=== PATIENT | male | born 1950 | race Caucasian/White ===

== ENCOUNTER 2023-07-13 09:55 | Outpatient (RCR) | payer MEDICARE, OTHER, SELFPAY ==
[2023-07-13 10:38] VITALS: BP 125/61
[2023-07-13 10:59] VITALS: BP 131/60
[2023-07-13 11:01] VITALS: BP 120/63
== END 2023-08-08 23:59 | disposition home or self-care (01) ==
LOC: OID 09:55
PROVIDERS: ATTENDING PHYSICIAN Specialist; FAMILY PHYSICIAN Nurse Practitioner Family
DX: E83.110 Hereditary hemochromatosis (principal)
CPT/HCPCS: 99195

== ENCOUNTER → 2023-11-14 07:13 | Outpatient (REF) | payer MEDICARE, OTHER, SELFPAY | LOC: PAVMRI 07:13 | PROVIDERS: ATTENDING PHYSICIAN Otolaryngology; FAMILY PHYSICIAN Nurse Practitioner Family | DX: H90.A21 Sensorineural hearing loss, unilateral, right ear, with restricted hearing on the contralateral side (principal); H93.11 Tinnitus, right ear | CPT/HCPCS: 70553; A9575 ==

== ENCOUNTER → 2024-01-04 10:09 | Outpatient (REF) | payer MEDICARE, OTHER, SELFPAY | LOC: RCS 10:09 | PROVIDERS: ATTENDING PHYSICIAN Internal Medicine Cardiovascular Disease; FAMILY PHYSICIAN Nurse Practitioner Family | DX: Q23.1 Congenital insufficiency of aortic valve (principal); I35.0 Nonrheumatic aortic (valve) stenosis; I35.1 Nonrheumatic aortic (valve) insufficiency | CPT/HCPCS: 93306 ==

== ENCOUNTER 2024-06-13 10:30 | Outpatient (RCR) | payer MEDICARE, OTHER, SELFPAY ==
[2024-06-13 11:18] VITALS: BP 132/69
[2024-06-13 11:46] VITALS: BP 133/60
[2024-06-13 11:50] VITALS: BP 128/69
== END 2024-07-08 23:59 | disposition home or self-care (01) ==
LOC: OID 10:30
PROVIDERS: ATTENDING PHYSICIAN Specialist
DX: E83.110 Hereditary hemochromatosis (principal)
CPT/HCPCS: 99195

== ENCOUNTER 2024-07-02 12:00 | Emergency (ER) | payer MEDICARE, OTHER, SELFPAY ==
[2024-07-02 12:04] VITALS: BP 120/66
[2024-07-02 12:31] LABS: COVID-19 Antigen Positive (Negative)
--- NOTE | 2024-07-02 14:04 | ED.GENMED ---
History of Present Illness
General
Chief Complaint: Cold/Flu/URI Symptoms
Source: patient
Exam Limitations: none
Time Seen by Provider: 07/02/24 13:56
Nursing documentation reviewed up to this point in time: agreed with
History of Present Illness
History of Present Illness:
Patient is a 74-year-old male presents today requesting COVID test. He reports he feels 'lousy' and requesting test. He feels body aches, mild nasal congestion. No fevers. He denies any shortness of breath, cough.
He has not taken any medications for symptoms.
Past History
Past History
ED Past Medical History: Other (BPH); Negative Asthma, HTN, Hypercholesterolemia or NIDDM
ED Past Surgical History: None
Social History
Tobacco: Non-smoker
Alcohol: Occasional
Personal:
Living: with family
Review of Systems
Review of Systems
Allergies reviewed?: Yes
All Other Systems: ROS reviewed and negative except as documented in HPI and ROS
Constitutional: Reports fatigue; Denies fever
EENT: Reports runny nose
Respiratory: Reports cough; Denies trouble breathing
ABD/GI: Reports no symptoms
: Reports no symptoms
Musculoskeletal: Reports other (Feels achy)
Skin: Reports no symptoms
Neurological: Reports no symptoms
Psychiatric: Reports no symptoms
Phy Exam
General Physical Exam
General Presentation: no apparent distress
General age: appears stated age
General Skin: warm and dry
General Habitus: elderly
General Mental: alert
General Hydration: appears well hydrated
Cardiovascular Exam
Cardiovascular Exam: regular rate/rhythm, no murmur and normal peripheral pulses
Pulmonary Exam
Pulmonary Exam: lungs clear and no respiratory distress
Neurological Exam
Neurological Exam: alert and oriented x3
Musculoskeletal Exam
Musculoskeletal Exam: full ROM
Skin Exam
Skin Exam: normal color and warm/dry
Psychiatric Exam
Psychiatric Exam: normal mood/affect
Course
Orders/Labs/Results
Orders:
Orders
07/02/24 12:18
COVID-19 Antigen Urgent
Source: Nasal Swab
Influenza A+B Rapid Molecular Urgent
BHUPINDER Source: Nasal Swab
Specimen Description:
Abnormal Lab Results
07/02/24
12:18
SARS-CoV-2 Antigen Positive A
(Negative)
Vital Signs
Initial and Last Documented VS:
Initial Vital Signs
Temp Pulse Resp BP Pulse Ox
98.1 F 78 18 120/66 100
07/02/24 12:04 07/02/24 12:04 07/02/24 12:04 07/02/24 12:04 07/02/24 12:04
Last Documented Vital Signs
Temp Pulse Resp BP Pulse Ox
98.1 F 78 18 120/66 100
07/02/24 12:04 07/02/24 12:04 07/02/24 12:04 07/02/24 12:04 07/02/24 12:04
MDM/Problems Addressed
MDM/Problems Addressed:
Pt came to the ED requesting COVID test. Patient has not felt well in the past several days feels achy subjective chills. He has not tested for COVID. He was found to be COVID-positive here however well-appearing. pt stable for d/c home with
supportive care, encouraged hydration Tylenol etc.
*Critical Care Note
Total Time (30-74mins, 75-104mins- exclusive of procedures): Not Applicable
ED Attending Note
-
Portions of this chart may have been created with voice recognition software.� Occasional wrong word or��sound alike� substitutions may have occurred due to the inherent limitations of voice recognition software.
Discharge Plan
Departure
Patient Disposition: Home (Routine Discharge)
Date of Disposition: 07/02/24
Time of Disposition: 14:17
Patient with high blood pressure during this ER visit?: No
Condition: Fair
Covid-19: Confirmed COVID-19
Discharge Problem:
COVID-19
Instructions: COVID-19 in adults - Discharge instructions
Prescriptions:
No Action
tamsulosin 0.4 MG capsule
0.4 mg PO .Q4DAY
finasteride 5 MG tablet
5 mg PO DAILY
atorvastatin 20 mg Tablet
20 mg PO DAILY
Activity Restrictions/Additional Instructions:
As discussed stay well-hydrated . Continue with supportive care, Tylenol as needed for fever or chills.
Follow-up with your family doctor as needed in the next several days and return if any worsening of symptoms
Interventions
Interventions:
*Risk Screen - Suicide Last Done: 07/02/24 14:27
*General Assessment Last Done: 07/02/24 14:27
*Neglect/Abuse Screening Last Done: 07/02/24 14:27
ED- Fall Risk Assessment Last Done: 07/02/24 14:19
*Nursing Disposition Last Done: 07/02/24 14:27
ED- Pulmonary Assessment Last Done: 07/02/24 14:19
Discharge Date and Time
Discharge Date/Time: 07/02/24 14:28
Print Language: JAMAICAN
== END 2024-07-02 14:28 | disposition home or self-care (01) ==
LOC: EMR 12:00
PROVIDERS: Emergency Medicine; EMERGENCY PHYSICIAN Emergency Medicine; FAMILY PHYSICIAN Nurse Practitioner Family
DX: U07.1 COVID-19 (principal); N40.0 Benign prostatic hyperplasia without lower urinary tract symptoms
CPT/HCPCS: 99282; 87502; 87811

== ENCOUNTER → 2024-07-28 07:12 | Outpatient (REF) | payer MEDICARE, OTHER, SELFPAY | LOC: RCS 07:12 | PROVIDERS: ATTENDING PHYSICIAN Physician Assistant Medical; FAMILY PHYSICIAN Nurse Practitioner Family | DX: Q23.1 Congenital insufficiency of aortic valve (principal); I35.0 Nonrheumatic aortic (valve) stenosis; R06.02 Shortness of breath; R53.83 Other fatigue | CPT/HCPCS: 93306 ==

== ENCOUNTER → 2024-08-12 06:53 | Day surgery (SDC) | payer MEDICARE, OTHER, SELFPAY ==
[2024-08-12] VITALS (12 sets, daily range): BP systolic 110–148; BP diastolic 53–73; BMI 25.1
[2024-08-12] MEDS: NSS 259 ML IV (07:30)
[2024-08-12] MEDS: LOW STRENGTH ASPIRIN 324 MG PO (07:36)
[2024-08-12 11:19] LABS: ACT-LR - POC 213 Seconds (116-155)
--- NOTE | 2024-08-12 14:50 | CONSULT.STRU ---
Consultation
-
Date/Time Consultation Requested: 08/12/2024
Date/Time Consultation Performed: 08/12/2024
Requesting Provider: Dr. Michael Poole
Performing Provider: CECILY Juarez
Reason for Consultation: Aortic stenosis, TAVR evaluation
Patient History
Physicians
Family Physician: Odalis Alex
Outpatient Community Health Educator: Perlita Pickard
Primary Community Health Educator: Austin Pickard
History of Present Illness
Patient is a very pleasant 74yo male with know history of a bicuspid aortic valve. Since the summer he has been feeling increased fatigue. He denies chest pain, palpitations, PND, orthopnea or edema. His most recent echocardiogram on 07/28/2024 was
notable for EF 60%, aortic valve PG/M/41, TANIKA: 0.9, mildly dilated aortic root and ascending aorta measure 3.9cm. It also shows mild to moderate eccentric jet AI. Mild MR and TR noted as well. He underwent cardiac catheterization today today in
anticipation of have his aortic valve replaced in the near future.
Reviewed the pathophysiology of aortic stenosis with the patient and his . Explained the treatment options of SAVR and TAVR. Explained the TAVR evaluation process including follow up BMP, CT TAVR scan, CT surgery consult and Heart Team
discussion. Provided with script for BMP next week, script and appointment for CT TAVR, Consult appointment with Dr. Johnson and a copy of the TAVR education booklet with contact information. Allowed for and answered questions.
Past Medical History
Past Medical History: BPH, CAD, Hypercholesterolemia, CHRISTIAN (CPAP compliant) and Other (Hemochromatosis, Seasonal allergies, h/o lyme disease 25 years ago, slight nodularity to surface of the liver, seasonal allergies, gynecomastia)
Past Surgical History
Past Surgical History: Cholecystectomy and Other (right meniscus repair, cataract surgery, hernia repair, hemorrhoidectomy)
Dental History
Regular Dental Care- Dr. Hennessy - [facility]
Family History
Mother: at Age (88yo, CAD)
Father: at Age (66yo, lung cancer)
Social History
Alcohol: Occasional
Drug: None
Tobacco: Non-Smoker
Personal:
Living: With Spouse
Employment: Retired ([employer])
Allergies
Allergy/AdvReac Type Severity Reaction Status Date / Time
No Known Allergies Allergy Verified 08/12/24 07:39
Home Medications
�Medication �Instructions �Recorded �Confirmed �Type
tamsulosin 0.4 mg capsule 0.4 mg PO Q48H 05/28/17 08/12/24 History
finasteride 5 mg tablet 5 mg PO DAILY 03/07/19 08/12/24 History
aspirin 81 mg tablet,delayed 81 mg PO DAILY #1 tab 08/12/24 Rx
release
atorvastatin 40 mg tablet 40 mg PO DAILY #90 tabs 08/12/24 Rx
levocetirizine 5 mg tablet (Xyzal) 5 mg PO .48HRS 08/12/24 08/12/24 History
STS%
STS %: AVR: 0.584%, AVR/CAB.862%
Review of Systems
-
History Source: Patient and Family
General: Reports Fatigue (since summer); Denies Fever, Weight Gain or Weight Loss
HEENT: Denies No Symptoms
Respiratory: Denies CRUZ, Cough, Asthma or PND
Cardiac: Reports CAD; Denies Chest Pain, Palpitations or Edema
Abdomen/GI: Reports No Symptoms; Denies Abdominal Pain, Reflux, Nausea, Vomiting or Diarrhea
: Reports No Symptoms; Denies Dysuria, Frequency or Urgency
Musculoskeletal: Reports No Symptoms
Skin: Reports No Symptoms
Neurological: Reports No Symptoms; Denies CVA, TIA, Headaches or Syncope
Vascular: Reports No Symptoms
Physical Exam
Vital Signs
Temp 97.4 F 08/12/24 07:49
Temp route: Oral 08/12/24 07:49
Pulse 58 08/12/24 14:15
Resp Rate 14 08/12/24 14:15
Blood pressure 110/53 08/12/24 14:00
Blood pressure extremity used: Left upper arm 08/12/24 11:41
Position: Lying 08/12/24 11:41
MAP (cuff-Tiffanie Monitor) 70 08/12/24 14:00
SaO2 100 08/12/24 14:15
Oxygen Mode of Delivery Room air 08/12/24 11:41
Can the patient verbally communicate their pain? Yes 08/12/24 13:26
Actual Weight 86.183 kg 08/12/24 07:28
Body Mass Index (BMI) 25.1 08/12/24 07:28
Labs
07/15/2024:
BUN/Creat: 21/0.78
GFR: 94
WBC: 5.9
Hgb: 13.1
HCT: 39.7
Platelets: [id number]
Diagnostic Studies
07/28/2024 Echocardiogram:
CONCLUSIONS
Normal left ventricular chamber size. Mild concentric left ventricular
hypertrophy. Normal regional wall motion. Normal left ventricular systolic
function. Left ventricular ejection fraction is 60% by Henderson's biplane method
of discs. Normal diastolic function.
Presumed bicuspid aortic valve ( fusion of right and left coronary cusps) with
mild to moderate eccentric jet regurgitation. Severe aortic stenosis with
peak/mean gradients of 81/42 mmHg. Using an LVOT of 2.1 cm the calculated
valve area is 0.9 cm2.
Mildly dilated aortic root. Sinuses of Valsalva (4.0 cm) and ascending aorta
(3.9 cm). The aortic arch is normal in caliber.
Since echocardiogram December 2023, there is little change. Aortic stenosis may
have worsened slightly from moderate-severe to severe. Mean pressure gradient
increased from 36 mmHg to 42 mmHg but aortic valve area is similar. Aortic
root is mildly dilated.
Indications:
Shortness of breath; Fatigue; Bicuspid aortic valve
Rhythm: Sinus
Portable Study: No
Technical Quality: Good
Contrast: None
BP: 136 / 70
PROCEDURE
A complete Transthoracic Echocardiogram was performed utilizing two-dimensional
evaluation with color flow and spectral Doppler analysis.
FINDINGS
Left Ventricle
Normal left ventricular chamber size. Mild concentric left ventricular
hypertrophy. Normal regional wall motion. Normal left ventricular systolic
function. Left ventricular ejection fraction is 60% by Henderson's biplane method
of discs. Normal diastolic function.
Right Ventricle
Normal right ventricular size and function.
Left Atrium
Normal left atrium. Indexed LA volume is within normal range (15-34 mL/m2).
Right Atrium
The right atrium is of normal size as is the IVC.
Mitral Valve
Thickened mitral valve leaflets. Mitral valve opens normally. Mild mitral
regurgitation.
Aortic Valve
Presumed bicuspid aortic valve ( fusion of right and left coronary cusps) with
mild to moderate eccentric jet regurgitation. Severe aortic stenosis with
peak/mean gradients of 81/42 mmHg. Using an LVOT of 2.1 cm the calculated
valve area is 0.9 cm2.
Tricuspid Valve
Structurally normal tricuspid valve. Tricuspid valve opens normally. Mild
tricuspid regurgitation. Estimated pulmonary artery pressure of 25 mmHg,
assuming a right atrial pressure of 3 mmHg.
Pulmonic Valve
Pulmonic valve is grossly normal but poorly visualized. Trace pulmonic
regurgitation.
Pericardium\\Pleura
Normal pericardium and pleura without evidence of effusion.
Aorta
Mildly dilated aortic root. Sinuses of Valsalva (4.0 cm) and ascending aorta
(3.9 cm). The aortic arch is normal in caliber.
Other Finding
The IVC is of normal size and demonstrates normal respiratory variation.
Interatrial septum is intact with no evidence of shunting by color flow
Doppler. No intracardiac mass or thrombus formation seen.
MEASUREMENTS (Male / Female) Normal Values
2D ECHO
LV Diastolic Diameter PLAX 5.1 cm 4.2 - 5.9 / 3.9 - 5.3 cm
LV Systolic Diameter PLAX 3.6 cm
IVS Diastolic Thickness 1.1 cm 0.6 - 1.0 / 0.6 - 0.9 cm
LVPW Diastolic Thickness 1.1 cm 0.6 - 1.0 / 0.6 - 0.9 cm
LV Relative Wall Thickness 0.4
LVOT Diameter 2.1 cm
LV Ejection Fraction MOD BP 60.0 % >= 55 %
LV Stroke Volume MOD BP 84.0 cm3
LV Cardiac Index MOD BP 2165.8 cm3/min
LV Stroke Volume MOD 4C 86.0 cm3
LV Stroke Volume 4C AL 94.2 cm3
LV Stroke Volume MOD 2C 83.0 cm3
LV Stroke Volume 2C AL 88.1 cm3
LA Area 4C View 22.4 cm2 <= 20 cm2
LA Length 4C 6.1 cm
LA Volume 65.0 cm3 18 - 58 / 22 - 52 cm3
LA Volume Index 28.6 cm3/m2 16 - 34 cm3/m2
Ascending Aorta Diameter 3.9 cm
M-MODE
Aortic Root Diameter MM 3.5 cm
AV Cusp Separation MM 0.5 cm
DOPPLER
AV Peak Velocity 404.0 cm/s
AV Peak Gradient 65.3 mmHg
AV Mean Gradient 38.0 mmHg
AV Velocity Time Integral 106.6 cm
AI Peak Velocity 487.5 cm/s
AI Peak Gradient 95.1 mmHg
AI Pressure Half Time 642.5 ms
LVOT Peak Velocity 114.0 cm/s
LVOT Peak Gradient 5.2 mmHg
LVOT Velocity Time Integral 29.9 cm
LVOT Stroke Volume 103.6 cm3
LVOT Stroke Volume Index 49.4 ml/m2 empty
LVOT Cardiac Index 2670.2 cm3/min\\m2
AV Area Cont Eq vti 1.0 cm2
AV Area Cont Eq pk 1.0 cm2
Mitral E Point Velocity 65.6 cm/s
Mitral A Point Velocity 52.8 cm/s
Mitral E to A Ratio 1.2
LV E' Lateral Velocity 10.8 cm/s
Mitral E to LV E' Lateral Ratio 6.1
LV E' Septal Velocity 9.4 cm/s
Mitral E to LV E' Septal Ratio 7.0
TV Peak Velocity 229.8 cm/s
Exam
General: Well Developed, Well Nourished, No Apparent Distress and Comfortable
HEENT: Normocephalic, Moist Mucous Membranes, PERRLA and EOMI
Neck: Trachea Midline
Respiratory: Clear; Negative Wheezes, Crackles or Rhonchi
Cardiac: S1/S2, Regular Rhythm and Murmur (Grade III/ systolic murmur)
GI: Soft, Non Tender, Non Distended and Normal Bowel Sounds
Rectal: Deferred by Provider
Skin: Warm and Dry
Neuro: AO x 3 and Nonfocal/Grossly Intact
Extremities: Pulses (+2 dp/pt pulses bilaterally); Negative Lower Level Edema
Psych: Calm
Assessment / Plan
-
Procedure Type:�Isolated AVR
Perioperative Outcome Estimate %
Operative Mortality 0.584%
Morbidity & Mortality 3.63%
Stroke 0.938%
Renal Failure 0.421%
Reoperation 3.03%
Prolonged Ventilation 1.13%
Deep Sternal Wound Infection 0.027%
Long Hospital Stay (>14 days) 1.45%
Short Hospital Stay (<6 days)* 67.3%
Procedure Type:�CABG + AVR
Perioperative Outcome Estimate %
Operative Mortality 0.862%
Morbidity & Mortality 4.75%
Stroke 0.799%
Renal Failure 0.68%
Reoperation 3.57%
Prolonged Ventilation 2.13%
Deep Sternal Wound Infection 0.05%
Long Hospital Stay (>14 days) 2.45%
Short Hospital Stay (<6 days)* 55.3%
Assessment/Plan:
-Severe symptomatic aortic stenosis
-continue evaluation for aortic stenosis as outpatient
-follow up BMP on 08/19/2024
-CT TAVR scan on 08/28/2024 at 0930
-CT surgery consult with Dr. Alex hammer 09/02/2024
-Dental Clearance
-Heart team discussion at [facility] meeting
-CAD
-borderline IFR of the LAD (0.9)
-Heart healthy diet
-statin/asa
-Review cath, echo and CT scan with heart team at [facility]
Data Reviewed
-
EKG: Report Reviewed by me
Supervisor [employer]: Discussed with Physician and Discussed with Patient
Echo: Report Reviewed by me and Discussed with Patient
Labs: Labs Reviewed by me and Discussed with Patient
Old Records: Reviewed (Cardiology Office Notes)
--- NOTE | 2024-08-12 17:16 | ITS.CL.CATH ---
User Interface Artist - Catheterization
Cardiac Catheterization
Procedure Report:
LEFT HEART CATHETERIZATION
Date of Procedure: August 12, 2024
Referring: Dr. Michael Pickard
PROCEDURES:
1. Coronary angiography
2. Hemodynamic assessment of LAD with the iFR measuring just at the ischemic threshold at 0.90, 0.90, and 0.91
INDICATION: This is a 74-year-old gentleman with a past medical history notable for bicuspid aortic valve. Over the summer he experienced increased fatigue and his most recent echocardiogram was notable for progressive severe aortic stenosis with a
mean aortic valve gradient of 41 mmHg. He was noted to have mild to moderate eccentric aortic insufficiency. Given symptoms he is now referred for coronary angiography to begin assessment for surgical or transcatheter aortic valve replacement
ACCESS: Right radial artery, 6 Iceland[place] sheath
HEMODYNAMICS : (mmHg)
AO (s/d) : 125/61, 88
CORONARY FINDINGS
DOMINANCE: Right
LEFT MAIN: Short with near cloacal left main.
LEFT ANTERIOR DESCENDING: The LAD arises normally from the left main and runs in the anterior interventricular groove. The first diagonal branch is a moderate caliber vessel arising from the proximal third of the LAD and has a 70% stenosis near its
origin. There is a eccentric 60% mid LAD stenosis spanning the origin of a small second diagonal branch. The remainder of the LAD has only minor irregularities.
CIRCUMFLEX: The circumflex is a large-caliber nondominant vessel giving rise to a very small OM1, large OM 2 which bifurcates distally and then continues in the AV groove supplying parallel posterolateral branches
RIGHT CORONARY ARTERY: The right coronary artery is a dominant vessel with minor irregularities over its course but no focal obstructive stenosis.
HEMODYNAMIC ASSESSMENT OF THE LAD WITH A [place] OMNI WIRE: The origin of the left main was cannulated with a 5 Fr JL4 guide catheter. Intravenous heparin was administered and the ACT was followed during the procedure. Two hundred micrograms of
intracoronary nitroglycerin was given through the guide catheter. A [place] Omni wire was advanced to the guide catheter tip and normalized to guide catheter pressure. The Omni wire was then carefully manipulated across the stenosis in the mid LAD
with a moderate degree of difficulty. The IFR serially measured at the ischemic threshold at 0.90, 0.90, and 0.91. The majority of step up was noted across the mid LAD stenosis and the Pd/Pa back in the proximal LAD measured 1.0 confirming no
baseline drift.
RADIATION SUMMARY: Fluoro Time (min): 6.9, Dose (mGy): 430, DAP (Gy.cm2) : 27.4
Closure Device: TR band
CONCLUSIONS
1. Severe symptomatic aortic stenosis
2. The stenosis in the mid LAD is of borderline hemodynamic significance with the iFR measuring at the cutoff of 0.90, 0.90, and 0.91.
RECOMMENDATIONS
1. Continue aspirin.
2. High intensity lipid-lowering for goal LDL cholesterol of less than 70
3. Will discuss at upcoming valve clinic meeting
Copy to: Dr. Michael Pickard
== END | disposition home or self-care (01) ==
LOC: CATH 06:53
PROVIDERS: ATTENDING PHYSICIAN Internal Medicine Interventional Cardiology; FAMILY PHYSICIAN Nurse Practitioner Family; OTHER PHYSICIAN Internal Medicine Cardiovascular Disease
DX: I25.10 Atherosclerotic heart disease of native coronary artery without angina pectoris (principal); I35.2 Nonrheumatic aortic (valve) stenosis with insufficiency; Q23.81 Bicuspid aortic valve; G47.33 Obstructive sleep apnea (adult) (pediatric); N40.0 Benign prostatic hyperplasia without lower urinary tract symptoms; E78.00 Pure hypercholesterolemia, unspecified; Z80.1 Family history of malignant neoplasm of trachea, bronchus and lung; Z82.49 Family history of ischemic heart disease and other diseases of the circulatory system; Z79.82 Long term (current) use of aspirin; Z79.899 Other long term (current) drug therapy
CPT/HCPCS: 93799; 85347; 93454; C1769; C1894; Q9967

== ENCOUNTER → 2024-08-28 09:05 | Outpatient (REF) | payer MEDICARE, OTHER, SELFPAY | LOC: RAD 09:05 | PROVIDERS: ATTENDING PHYSICIAN Nurse Practitioner Adult Health; FAMILY PHYSICIAN Nurse Practitioner Family | DX: I35.0 Nonrheumatic aortic (valve) stenosis (principal) | CPT/HCPCS: 74174; 75572; Q9967 ==

== ENCOUNTER 2024-10-02 07:19 | Inpatient (IN) | payer MEDICARE, OTHER, SELFPAY ==
[2024-09-25 08:15] VITALS: BMI 24.4
[2024-09-25 09:01] LABS: % Basophils 0.7 % (0-2); % Eosinophils 4.4 % (0-6); % Immature Granulocytes 0.4 % (0-0.5); % Lymphocytes 20.4 % (20.5-51.1); % Neutrophils 63.1 % (42.2-75.2); Absolute Eosinophils 0.2 10^3/uL (0-0.7); Absolute Lymphocytes 1.1 10^3/uL (1.2-3.4); Absolute Monocytes 0.6 10^3/uL (0.1-0.6); Absolute Neutrophils 3.4 10^3/uL (1.4-6.5); Hematocrit 39.5 % (39.0-52.0); Hemoglobin 13.5 g/dL (13.0-18.0); Mean Corp Hgb Conc. 34.2 g/dL (33.0-37.0); Mean Corpuscular Hgb 31.3 pg (27.0-31.0); Mean Corpuscular Volume 91.6 fL (80.0-94.0); Mean Platelet Volume 11.1 fL (7.4-10.4); Nucleated Red Blood Cells % 0 % (-); Platelet Count 191 10^3/uL (130-400); Red Blood Cell Count 4.31 10^6/uL (4.70-6.10); Red Cell Dist. Width 12.4 % (11.5-14.5); White Blood Cell Count 5.5 10^3/uL (4.8-10.8)
[2024-09-25 09:04] LABS: INR 0.95; PT 13.2 Sec (11.4-14.6)
[2024-09-25 09:05] LABS: APTT 30.1 Sec (23.4-35.0)
[2024-09-25 09:25] LABS: ALT (SGPT) 16 U/L (0-50); AST (SGOT) 20 U/L (17-59); Albumin 3.9 g/dl (3.5-5.0); Alkaline Phosphatase 53 U/L (38-126); Blood Urea Nitrogen 23 mg/dl (9-20); Calcium 9.2 mg/dl (8.4-10.2); Carbon Dioxide 27 mmol/L (22-30); Chloride 104 mmol/L (98-107); Direct Bilirubin 0.1 mg/dl (0.0-0.4); Estimated Creatinine Clearance 93 ml/min; Glucose 101 mg/dl (70-99); Sodium 135 mmol/L (135-145); Total Bilirubin 1.2 mg/dl (0.2-1.3); Total Protein 6.2 g/dl (6.3-8.2); eGFR > 60.00
[2024-09-25 09:27] LABS: NT-proBNP 49.7 pg/ml
--- NOTE | 2024-09-25 10:06 | HPS.HSE ---
Family Physician
-
Family Physician: CECILY Valles
Chief Complaint
-
Fatigue
History of Present Illness
Mr. Hammonds is a very pleasant 74 yom with a past medical history significant for , hemochromotosis, lyme disease, HLD, and CHRISTIAN/CPAP, His most recent echocardiogram from 07/28/2024 is notable for EF 605, AV P/M 81/41, TANIKA 0.9, moderate AI, mildly
dilated aortic root, and ascending aorta measure 3.9 cm. Cardiac catheterization from 08/12/2024 demonstrated severe and The stenosis in the mid LAD is of borderline hemodynamic significance with the iFR measuring at the cutoff of 0.90, 0.90, and
0.91. He has been reviewed with the heart team and recommended for transfemoral TAVR utilizing a 26mm S3. Patient is scheduled for TAVR 10/02/[address] Oh and Alex.
Assessed patient in preadmission testing and confirmed medication list. Instructed patient to take his 81 mg aspirin prior to his 0730 arrival time to the [facility]. Reviewed the risks of the procedure as discussed in consult including stroke,
ppm, and vascular injury. Informed patient that he will receive a phone call from the heart team on Sunday 10/01 to confirm time and location of arrival. Allowed for and answereed questions.
Medical History
Past Medical History
Past Medical History: Reports Hypercholesterolemia and Valvular Disease (aortic stenosis)
Additional Past Medical History:
CHRISTIAN/CPAP, hemohromoatosis, lyme disease, BPH, eczema,, COVID
Past Surgical History: Reports Cholecystectomy, Tonsilectomy and Other (cataract, hernia)
Social History
Tobacco: Non-smoker
Alcohol: Occasional
Drug: None
Employment: Retired
Family History
Family History: CAD and Cancer
Allergies / Home Medications
Allergies reflects when Allergies were last updated in [facility]
Home Medications with original date entered in [facility]
Ana Paula.
Aspirin Adult Low Dose(Aspirin) 81 MG Tablet Delayed Release 1 tablet Orally Once a day.
Atorvastatin Calcium 40 MG Tablet 1 tablet Orally Once a day
.Finasteride 5 MG Tablet 1 tablet Orally Once a Day.
Flomax 0.4 MG Capsule 1 capsule Orally Every Other Day
.Probiotic 250 MG Capsule as directed Orally daily , Notes to Pharmacist: daily.
Allergy/Medication List:
nkda
Review of Systems
-
History Source: Patient
A 12 point ROS was completed and negative except as noted: Yes
Constitutional: Reports Fatigue
Respiratory: Reports Other (CRUZ)
Physical Exam
Physical Exam
General: Well Developed, Well Nourished and No Apparent Distress
HEENT: NormoCephalic and PERRLA
Respiratory: Clear
Cardiac: Regular Rhythm and Murmur (IV/ RAUL)
Breast: Deferred by me
GI: Soft, Non Tender and Non Distended
Rectal: Deferred by Provider
Genito-urinary: Deferred by me
Musculoskeletal: No Edema
Skin: Warm and Dry
Neuro: Awake, Alert, Oriented and AO x 3
Psych: Calm
Laboratory Results
-
09/25/24 08:37
09/25/24 08:37
Laboratory Results
PT 13.2 Sec (11.4-14.6) 09/25/24 08:37
INR 0.95 09/25/24 08:37
APTT 30.1 Sec (23.4-35.0) 09/25/24 08:37
Total Bilirubin 1.2 mg/dl (0.2-1.3) 09/25/24 08:37
AST 20 U/L (17-59) 09/25/24 08:37
ALT 16 U/L (0-50) 09/25/24 08:37
Alkaline Phosphatase 53 U/L (38-126) 09/25/24 08:37
Data Reviewed
-
CT Scan: Report Reviewed by me and Discussed with Physician (Reviewed CT scan with the heart team)
Medical Tests (Nuc Med, Echo, EKG etc): Report Reviewed by me and Discussed with Physician (reviewed echo and cath with the heart team)
Lab Data: Labs Reviewed by me
Old Records: Reviewed
Impression/Plan
-
IMPRESSION/PLAN:
Aortic Stenosis-TF TAVR planned for 10/02 with Nikolay Oh and Alex
Continue Aspirin
POD#08/07 echocardiogram
Cardiac rehab consult
[2024-09-25 10:31] LABS: Urine Albumin Negative (Neg - Trace); Urine Bilirubin Negative (Negative); Urine Character Clear (Clear); Urine Color Yellow; Urine Glucose Negative (Negative); Urine Ketone Negative (Negative); Urine Leukocyte Negative (Negative); Urine Nitrite Negative (Negative); Urine Occult Blood Negative (Negative); Urine Specific Gravity 1.015 (<1.030); Urine Urobilinogen Negative (Neg - 1+)
--- NOTE | 2024-09-25 10:44 | CM ---
CM following for DC planning needs.
Met w/ patient during PATs for planned TAVR, 10/02.
Pt. resides w/ spouse in a private, 2 story home. Pt. is functionally indep. at baseline w/ ADLs, mobility without the use of any assisted device.
Pt. has CPAP at home, which he uses regularly.
Pt. is quite active; works out at [employer] regularly.
Pt. has RX plan and uses [facility] in [place].
Reviewed pre and post op routines.
Soap, shower instructions and TAVR booklet provided.
Discussed post op MD appointment, visit from [facility] Transitional Care RN, Cardiac Rehab.
Plan is for TAVR, 10/02
Anticipated DC plan is for home w/ [facility] Transitional Care RN.
CM to follow.
[2024-09-25 11:13] LABS: Glycohemoglobin (HgbA1c) 5.6 % (4.0-5.6)
[2024-10-02] VITALS (15 sets, daily range): BP systolic 100–143; BP diastolic 60–91; BMI 24.4
[2024-10-02] MEDS: ANCEF 10 IV ×2 (10:15)
--- NOTE | 2024-10-02 10:45 | CM ---
Patient in OR today for planned TAVR.
Reviewed initial assessment. Patient resides at home w/ spouse in a private, 2 ST. Pt. is functionally indep. at baseline w/ ADLs, mobility; +CPAP.
Antic. DC plan is for home w/ CT Transitional Care RN.
CM to follow.
[2024-10-02 11:10] LABS: ACT-LR - POC 237 Seconds (116-155)
[2024-10-02 11:18] LABS: ACT-LR - POC 311 Seconds (116-155)
--- NOTE | 2024-10-02 11:34 | W.CVOR.SURPR ---
CVOR Surgeon Immed Pre Op
-
I have examined this patient prior to performance of the scheduled procedure.
The patient's condition is unchanged from the time of the dictated/written History and
Physical and the patient is able to undergo the scheduled procedure.
--- NOTE | 2024-10-02 11:35 | W.IMMPOSTOP ---
Surgical Immed Post Op Note
-
[id number]
STRUCTURAL HEART PROCEDURE NOTE: TAVR
Preoperative Dx:
Severe aortic stenosis (P/M: 81/42, TANIKA 0.9)
Rmet-eq-kglmgbjt aortic insufficiency
CAD
HChol
Hemochromatosis
Gynecomastia
Hx of lyme disease
BPH
Postoperative Dx:
Same
Procedures:
1) L RA access w/ tactile, U/S, and fluoroscopic guidance, micropuncture technique, 6Fr sheath placement
2) L CFV access w/ U/S and fluoroscopic guidance, micropuncture technique, long 6Fr sheath placement
3) R AUTISTIC TEACHER access w/ tactile, U/S, and fluoroscopic guidance, micropuncture technique, limited angiography, 8Fr dilator placement
4) Perclose placement x 2 into R AUTISTIC TEACHER, 8Fr sheath placement
5) Placement of temporary RV pacing wire via L CFV access w/ threshold testing
6) Placement of pigtail catheter in RCC via L RA access w/ limited aortography & confirmation of co-planar valve deployment angles
7) Placement of James E-sheath via R AUTISTIC TEACHER (systemic heparinization)
8) Wire purchase across stenotic AV, LVEDP assessment (20mmHg)
9) R TF TAVR w/ placement of 26mm JENNIFER 3 valve
10) Completion aortography
11) Completion TTE (mean gradient 7mmHg, no AI/PVL)
12) Long pigtail placement in descending thoracic aorta via L RA access
13) Removal of vdhwo-kknjivig-fdgfwa, James E-sheath w/ R AUTISTIC TEACHER mgmt w/ perclose sutures x 2; manual pressure
14) Completion R ileofemoral angiography
15) Removal of temporary pacing wire
16) Removal of L RA 6Fr sheath w/ mgmt w/ radial band placement
17) Removal of L CFV 6Fr sheath w/ mgmt w/ manual pressure
Cardiac Surgeon:
Aditya Johnson M.D.
Duster Tender:
Mariel Oh M.D.
Anesthesia:
MAC & local to B/L groins & L wrist
Implants:
Perclose x 2 to R AUTISTIC TEACHER
James [employer], JENNIFER 3, 26mm valve; SN: [id number]
Cath Data:
Start: 1038hrs; Deploy: 1111hrs; End: 1131hrs
FT: 9.5min, mGy: 153.89, DAP: 16.3981, Contrast: 48mL
Post-TTE: mean gradient 7mmHg, no AI/PVL
Complications:
New BBB, no pauses/bradycardia
Condition:
Stable/guarded to recovery
--- NOTE | 2024-10-02 11:53 | ITS.CL.TAVR ---
Leather Products Supervisor - TAVR Report
TAVR PRocedure
Procedure Report:
TRANSCATHETER AORTIC VALVE REPLACEMENT
Date of Procedure: October 02, 2024
Referring: Michael Pickard MD
Operators: Drs. Mariel Oh and Aditya Johnson
PROCEDURE PERFORMED:
1. Successful placement of 26 mm James Shannon S3 aortic valve via right common femoral approach.
ACCESS:
1. Right common femoral artery, 8 Yemeni sheath, under ultrasound guidance using a micropuncture kit.
2. Left common femoral vein, 6 Yemeni sheath, under ultrasound guidance using a micropuncture kit.
3. Left radial artery, 6 Yemeni sheath, under ultrasound-guided
Ultrasound was utilized for vascular access. The right and left femoral artery and vein were visualized under ultrasound, and the vessels was patent and arteries were pulsatile. An image was stored permanently in the patient's medical record.
Under direct ultrasound guidance, a 6 Yemeni sheaths was inserted into the right common femoral artery and vein, and an 8 Yemeni sheath in the left common femoral artery, respectively, using a micropuncture kit through a modified Seldinger technique.
PREPROCEDURE NYHA CLASS: II
DESCRIPTION OF PROCEDURE: The patient was referred for assessment of severe symptomatic aortic stenosis and following a comprehensive evaluation it was felt that transcatheter aortic valve replacement (TAVR) would be the most appropriate treatment.
Informed consent was obtained prior to the procedure. A 'time-out' was called and the procedural plan was verbally confirmed by anesthesia, surgery, perfusion, and labor delivery rn staff.
Arterial and venous access site were obtained in the right radial artery and left common femoral vein, respectively common femoral artery and vein using ultrasound guidance and micropuncture technique. 6 Fr. sheaths were inserted.
A 5 Fr. transvenous pacing wire was advanced to the right ventricle where excellent pacing thresholds were obtained.
A 5 Fr. pigtail catheter was then advanced to the proximal ascending aorta / right aortic cusp where angiography was performed in multiple angles to define the co-planar angle that was most appropriate valve deployment (LEBANESE 17/caudal 7).
Ultrasound guidance was then used to obtain arterial access in the right common femoral artery and a 8 Fr. sheath was inserted. Angiography was performed and the arteriotomy site appeared appropriate for preclosure with two Perclose devices. An 8
Fr sheath was then inserted back into the common femoral artery over a J-tipped guidewire. An AL1 catheter was positioned in the proximal descending aorta. A Super Stiff 0.035' J-tip wire was inserted to provide extra-support to facilitate the
James eSheath delivery. The 16 Fr. James eSheath was successfully advanced in the descending thoracic aorta.
An AL1 catheter was advanced through the James eSheath over a 0.035' J-tip guide wire. The AL1 catheter was positioned just above the aortic valve. A 0.035' Straight tip wire probed the aortic valve and crossed the stenotic leaflets. The AL1
was then advanced to the mid left ventricle. Invasive LVEDP was measured at this point which was elevated at 20 mmHg. An Amplatz Extra-stiff wire with a generous curved tip was then positioned in the left ventricular apex. A 26 mm James Shannon
S3 valve was brought to the table and the orientation of the valve on the balloon delivery system was confirmed by all operators. The Shannon S3 valve was advanced through the eSheath and into the proximal descending thoracic aorta. The Shannon S3
valve was centered on the delivery balloon and the entire system was retroflexed as it crossed the aortic arch. The Shannon S3 delivery system was then advanced across the stenotic valve and the 26 mm Shannon S3 valve was deployed during rapid
pacing. The valve deployment was uneventful. Transthoracic echocardiographic images post valve deployment revealed minimal aortic insufficiency with excellent position of the aortic prosthesis.
The James balloon and delivery system were then removed. The James sheath was removed and the Perclose knots were advanced to the arteriotomy site resulting in excellent hemostasis.
Fluoro Time: 9.5 min, Dose: 153.8 mGy, DAP : 16.4 Gy.cm2
CONCLUSIONS:
1. Severe symptomatic aortic stenosis. Successful deployment of a 26 mm Shannon S3 valve with minimal aortic insufficiency post procedure
2. Successful arteriotomy closure with 2 Perclose devices.
3. Acute on chronic diastolic heart failure with elevated LVEDP at 20 mmHg.
Mariel hO MD, FACC, [facility]
--- NOTE | 2024-10-02 12:23 | W.PN.UPDATE ---
Update Note
Progress Note Update
Reviewed Mr. Campbell with the heart team in the preTAVR SDM meeting and confirmed a 26mm S3 via right transfemoral access. Patient will resume aspirin post TAVR. LVEDP 20mmHg. #26mmS3 (serial# [id number]) successfully deployed via right transfemoral
access. Post implant MG 7 mmHg.
[2024-10-02] MEDS: PROSCAR 5 MG PO (16:25)
[2024-10-02] MEDS: LIPITOR 40 MG PO (16:25)
[2024-10-02] MEDS: ANCEF 5 IV (18:18)
[2024-10-02] MEDS: FLUSH (NSS) 1 FLUSH IV (18:18)
[2024-10-02] MEDS: CLARITIN 10 MG PO (21:13)
--- NOTE | 2024-10-02 23:55 | PTCARENOTE ---
Assumed care of the pt at shift change. Pt is AAOx3 SR on the monitor. Rt groin site dressing draining sm amount serosang drainage no bleeding or hematoma. Dressing was changed. left groin and left radial dressing c/d/i. Pt using own CPAP machine
for sleep. Call jacobs within reach.
[2024-10-03 03:35] VITALS: BP 137/72
[2024-10-03 04:20] LABS: Hematocrit 36.4 % (39.0-52.0); Hemoglobin 12.7 g/dL (13.0-18.0); Mean Corp Hgb Conc. 34.9 g/dL (33.0-37.0); Mean Corpuscular Hgb 31.8 pg (27.0-31.0); Mean Platelet Volume 11.4 fL (7.4-10.4); Platelet Count 165 10^3/uL (130-400); Red Cell Dist. Width 12.1 % (11.5-14.5); White Blood Cell Count 11.5 10^3/uL (4.8-10.8)
[2024-10-03 05:01] LABS: Blood Urea Nitrogen 23 mg/dl (9-20); Carbon Dioxide 25 mmol/L (22-30); Chloride 108 mmol/L (98-107); Estimated Creatinine Clearance 106 ml/min; Glucose 103 mg/dl (70-99); Potassium 4.4 mmol/L (3.5-5.1); Sodium 137 mmol/L (135-145); eGFR > 60.00
[2024-10-03 05:37] VITALS: BMI 23.3
[2024-10-03 05:49] LABS: Hepatitis C Antibody Negative (Negative)
[2024-10-03 07:22] VITALS: BP 112/66
[2024-10-03] MEDS: PROSCAR 5 MG PO (07:27)
[2024-10-03] MEDS: LOW STRENGTH ASPIRIN 81 MG PO (07:27)
[2024-10-03] MEDS: CLARITIN 10 MG PO (07:27)
[2024-10-03] MEDS: FLOMAX 0.4 MG PO (07:27)
[2024-10-03] MEDS: LIPITOR 40 MG PO (07:27)
--- NOTE | 2024-10-03 07:42 | W.PN.CT ---
Today's Communication / Plan
-
-pod #1
-no issues overnight
-nsr 60s overnight. No haroon or pauses
-Echo today
-current meds (ASA, Lipitor, Flomax, Proscar)
-encourage IS, OOB
Assessment / Plan
-
- Severe symptomatic - s/p R TF TAVR w/ placement of 26mm JENNIFER 3 valve on 10/02/24, pod #1
- Post-TTE: mean gradient 7mmHg, no AI/PVL
- Zruj-mk-fxzskygd aortic insufficiency
- CAD
- HLD
- Hemochromatosis
- Gynecomastia
- Hx of lyme disease
- BPH
- CHRISTIAN, on CPAP
- Hx fall
- Choleclystitis
- Acute on chronic diastolic CHF, LVEDP 20
- Acute transient BBB- resolved
Discussed patient care with: Nursing and Care Team
Subjective
-
Date of Service: October 03, 2024
Objective Data
-
PT 13.2 Sec (11.4-14.6) 09/25/24 08:37
INR 0.95 09/25/24 08:37
APTT 30.1 Sec (23.4-35.0) 09/25/24 08:37
Vital Signs
Vital Signs
Temp Pulse Resp BP Pulse Ox
97.8 F 60 20 141/60 97
10/02/24 19:26 10/02/24 18:35 10/02/24 19:26 10/02/24 18:35 10/02/24 19:26
CT Intake/Output/Weight
10/02/24 10/02/24 10/03/24
06:59 18:59 06:59
Intake Total 500 / 500
Balance 500 / 500
SaO2: 97
Physical Exam
-
General: Awake and AOx3
Cardiovascular: Regular rate & rhythm and Murmur
Respiratory: Clear
Incision: Other (groins are cdi, soft, nontender, no hematoma b/l)
Extremities: No Edema (2+ DPs b/l)
Abdomen: soft, nontender, nondistended, + bowel sounds
Data Reviewed
-
Lab Results: Results Reviewed
Medications: Active Meds Reviewed
Chest X-Ray: Report Reviewed and Image Reviewed
ECG: Report Reviewed and Image Reviewed
--- NOTE | 2024-10-03 07:50 | W.DCSUMMARY ---
Discharge Summary
Discharge Data
Date of Admission: 10/02/24
Date of Discharge: 10/03/24
Total time spent discharging patient (in min): 35
-
Pending Results: No
Hospital Course
Primary care physician:
Dr. Odalis Alex
Outpatient trial attorney:
Dr. Perlita Pickard
Inpatient consultants:
DCA
Procedures:
1. R TF TAVR w/ placement of 26mm SHANNON 3 valve
Primary Diagnosis:
1. Severe aortic stenosis
Secondary Diagnoses:
1. Coronary artery disease
2. Hyperlipidemia
3. History of hemochromatosis
4. Gynecomastia
5. History of Lyme disease
6. BPH
7. Sinus bradycardia
HPI: Mr. Hammonds was seen in the office with Dr. Johnson for severe aortic stenosis and presented electively on 10/02 for transcatheter aortic valve replacement.
Hospital course:
Patient was electively admitted on 10/02 for a transcatheter aortic valve replacement with Dr. Johnson. Patient had no intraoperative events and patient went to slabber recovery. B/l groins remain stable. He was sent to IVU for the remainder of
their recovery. On 10/03, POD #1, B/L groins remained stable. Repeat TTE showed a peak/mean gradient of 23/13 and ejection fraction of 65-70%. He was deemed stable for discharge.
Home medication changes:
See below
Discharge Plan
-
Patient Disposition: Home (Routine Discharge)
Discharge Diagnosis/Procedures: 10/02 R TF TAVR #26mm Shannon 3
Condition: Good
Diet: Low Cholesterol and Low Sodium
Activity: No strenuous activity
Driving Restrictions: Not until seen by your Dr
Bathing Restrictions: OK to Shower
Other Services: Cardiac Rehab
Specialty Instructions: Weigh Daily- Call MD for wt gain/loss 3 lbs overnight/5 lbs in 1 week
Referrals:
CT Transitional Care Nurse [Outside] (The Cardiothoracic Transitional Care Nurse will call you to set up a visit in 1-2 days.)
[facility]. Cardiac Rehab [Outside] - 11/06/24 8:30 am
(Cardiac Rehab Orientation appointment� and� First Exercise appointment is on 11/06/24 at 8:30 AM
The Cardiac Rehab gym is located on the first floor of the [facility].)
Odalis Alex CRNP [Family Provider] -
Lakshmi Campos PA-C [Specified Professional Personl] - 11/05/24 7:40 am
Prescriptions:
New
acetaminophen 325 mg Tablet
650 mg PO Q4HPRN PRN (Reason: LIRIANO, mild pain, or fever >101F) Qty: 0 0RF
Continued
tamsulosin 0.4 MG capsule
0.4 mg PO Q48H
finasteride 5 MG tablet
5 mg PO DAILY
Probiotic
1 dose PO BID
fexofenadine 180 mg Tablet
180 mg PO BID
atorvastatin 40 mg tablet
40 mg PO DAILY
aspirin 81 mg tablet,delayed release (DR/EC)
81 mg PO DAILY
Held
ibuprofen 200 mg Capsule
400 mg PO Q6H PRN (Reason: pain)
Hold Instructions: Resume on 10/24/24.
Discharge Orders:
Discharge Patient (As Directed); Ordered 10/03/24
Ordered By: Moraima Duke
Care Plan Goals
Care Plan Goals:
Problem: Readiness for enhanced knowledge related to diagnosis and treatment plan
Goal: Understand your diagnosis and treatment plan needs, including medications if applicable.
Instructions: Know your diagnosis, underlying causes and treatment plan options, including medications if applicable. Consult with your health care team to learn about your diagnosis and treatment plan, including medications if applicable.
Discharge Date and Time
Print Language: TELUGU
--- NOTE | 2024-10-03 08:55 | W.PN.CARDCBS ---
Addendum entered and electronically signed by Wade Mishra MD 10/03/24 11:17:
I saw and examined the patient.
The Vehicle Check In Clerk's note was reviewed and I agree with the note.
Comment:
GEN: No distress, awake, Ox3
HEENT: supple, anicteric, mmm
LUNGS: CTA, no wheezes/rales
CV: Reg, S1/S2, 1/6 syst LSB, no gallop
ABD: soft, BS+, NT/ND
EXT: No edema
NEURO: Gross non-focal
SKIN: No rash
Plan:
Doing well status post TAVR. No significant events on telemetry.
Echo with preserved ejection fraction and stable #26 JENNIFER valve.
Continue medical therapy for CAD.
Continue aspirin atorvastatin
Original Note:
Today's Communication / Plan
-
s/p TAVR 10/02. no complaints overnight
Follow up echo completed
No significant bradycardia or pauses noted on telemetry.
If echo stable, ok for discharge
Follow up arranged.
Impression / Plan
-
PCP: CECILY Zuluaga
Sap Integration Architect: Dr. ALISON Pickard
Impression:
Bicuspid aortic valve w/ severe symptomatic
s/p R TF TAVR w/ placement of 26 mm JENNIFER 3 valve 10/02/2024
CAD
eccentric 60% mid LAD stenosis by cath 08/12/2024
Hereditary hemochromatosis
HLD
CHRISTIAN on CPAP
Echo 07/28/2024: EF 60%, mild cLVH, presumed bicuspid AV with severe , peak/mean gradients 81/42 mmHg, mildly dilated aortic root
Echo 10/02/2024: EF 55-60%, s/p TAVR w/ peak/mean gradients 15/7 mmHg, no AR
Echo 10/03/2024: Study completed, report pending
Plan:
-Known history of bicuspid aortic valve w/ severe symptomatic . Underwent successful R TF TAVR 10/02/2024 as noted above.
-Doing well overnight. No SOB.
-Appears euvolemic.
-Remains in SR on review of telemetry. No significant bradycardia or pauses noted.
-Follow up echo 10/03 completed, await report. If stable, will be ok for discharge.
-Continue aspirin 81mg daily, lipitor 40mg daily.
-Follow up arranged.
Progress Note - Sap Integration Architect
Subjective
Date of Service: October 03, 2024
No complaints. Feeling well.
Objective
Labs:
10/03/24 03:56
10/03/24 03:56
Labs
Hgb 12.7 g/dL (13.0-18.0) L 10/03/24 03:56
Hct 36.4 % (39.0-52.0) L 10/03/24 03:56
Plt Count 165 10^3/uL (130-400) 10/03/24 03:56
PT 13.2 Sec (11.4-14.6) 09/25/24 08:37
INR 0.95 09/25/24 08:37
APTT 30.1 Sec (23.4-35.0) 09/25/24 08:37
Sodium 137 mmol/L (135-145) 10/03/24 03:56
Potassium 4.4 mmol/L (3.5-5.1) 10/03/24 03:56
BUN 23 mg/dl (9-20) H 10/03/24 03:56
Creatinine 0.7 mg/dL (0.7-1.3) 10/03/24 03:56
Glucose 103 mg/dl (70-99) H 10/03/24 03:56
Vital Signs and I&O:
Vital Signs
Temp Pulse Resp BP Pulse Ox
97.9 F 66 18 112/66 99
10/03/24 07:22 10/03/24 08:00 10/03/24 07:22 10/03/24 07:22 10/03/24 07:22
Vital Signs
Temp Pulse Resp BP Pulse Ox
97.9 F 66 18 112/66 99
10/03/24 07:22 10/03/24 08:00 10/03/24 07:22 10/03/24 07:22 10/03/24 07:22
Intake & Output
10/01/24 10/02/24 10/03/24 10/04/24
06:59 06:59 06:59 06:59
Intake Total 500 / 500
Balance 500 / 500
Physical Exam
Physical Exam
GEN: No distress, awake, alert, oriented x3
HEENT: supple, anicteric, mmm
LUNGS: CTA b/l, no wheezes/rales
CV: Reg, S1/S2, no murmur
EXT: No clubbing, cyanosis, or edema
NEURO: Gross non-focal
SKIN: Warm, dry, no rash
--- NOTE | 2024-10-03 09:00 | PTCARENOTE ---
Addendum entered by Ray Johnson RN 10/03/24 12:56:
Echo at bedside. Assessment documented. Plan for discharge home today.
Original Note:
Assumed care of pt from shift supervisor film processing RN. AAOx3. NSR on tele. B/L groin dressings and L radial dressing CDI. Neurovascular checks WDL. Echo
--- NOTE | 2024-10-03 09:14 | W.PN.ANS.POP ---
Anesthesia Post Operative
- Anesthesia Post Op Note
Vital Signs Stable-See Nursing Note: Yes
Airway Patent: Yes
Adequate Pain Control: Yes
Change in Mental Status: No
Current Postoperative Nausea & Vomiting: No
Anesthesia Complications: No
General Anesthetic Recall: No
Unplanned Admission: No
Post Op Hydration Adequate: Yes
[2024-10-03 10:27] VITALS: BP 134/73
[2024-10-03 10:36] VITALS: BP 142/95
[2024-10-03 10:43] VITALS: BP 134/73; BP 144/95; PULSE 74; O2SAT 94; O2SAT 96
[2024-10-03 11:08] VITALS: BP 139/68
== END 2024-10-03 12:01 | disposition home or self-care (01) | DRG 266 ==
LOC: IVU 07:19
PROVIDERS: Internal Medicine Interventional Cardiology; Nurse Practitioner; ADMITTING PHYSICIAN Thoracic Surgery (Cardiothoracic Vascular Surgery); FAMILY PHYSICIAN Nurse Practitioner Family
PROC: 02RF38N Replacement of Aortic Valve with Zooplastic Tissue, using Rapid Deployment Technique, Percutaneous Approach (ICD-10-PCS; 2024-10-02)
DX: I35.2 Nonrheumatic aortic (valve) stenosis with insufficiency (principal); I50.33 Acute on chronic diastolic (congestive) heart failure; I25.10 Atherosclerotic heart disease of native coronary artery without angina pectoris; N62 Hypertrophy of breast; E78.00 Pure hypercholesterolemia, unspecified; I77.810 Thoracic aortic ectasia; G47.33 Obstructive sleep apnea (adult) (pediatric); H26.9 Unspecified cataract; E83.110 Hereditary hemochromatosis; N40.0 Benign prostatic hyperplasia without lower urinary tract symptoms; L30.9 Dermatitis, unspecified; I45.4 Nonspecific intraventricular block; Z90.49 Acquired absence of other specified parts of digestive tract; Z82.49 Family history of ischemic heart disease and other diseases of the circulatory system; Z86.19 Personal history of other infectious and parasitic diseases; Z79.82 Long term (current) use of aspirin
CPT/HCPCS: 93308; 33361; 36415; 71045; 71046; 76937; 80048; 80053; 81003; 82248; 83036; 83880; 85025; 85027; 85347; 85610; 85730; 86803; 86850; 86900; 86901; 87070; 93005; 93321; 93325; C1760; C1769; C1894; Q9967

== ENCOUNTER 2024-10-06 14:20 | Emergency (ER) | payer MEDICARE, OTHER, SELFPAY ==
[2024-10-06 14:44] VITALS: BP 111/79
[2024-10-06 16:59] VITALS: BP 140/80
--- NOTE | 2024-10-06 17:00 | ED.GENMED ---
History of Present Illness
<Aditya Bagley PA-C - Last Filed: 10/06/24 17:07>
General
Chief Complaint: Eye Problems
Source: patient
Time Seen by Provider: 10/06/24 16:37
History of Present Illness
History of Present Illness:
74-year-old male with past medical history of aortic stenosis status post TAVR October 02, 2024 presenting to the emergency department for evaluation at the request of his visiting nurse when patient noted that twice today he had turned his head to
the side (unsure as to which side he was turning his head to) when he noticed his vision in his left eye became slightly blurred for 1 to 2 seconds and then resolved spontaneously. Patient is asymptomatic at time of arrival. He is otherwise
denying any pain associated with this, chest pain, shortness of breath, palpitations, diaphoresis, focal weakness or numbness or any other concerns. He states about 10 years ago he had history of similar which was thought to be related to a
possible cataract issue which was fixed by [facility]. Patient otherwise asymptomatic at this time.
Past History
<Aditya Bagley PA-C - Last Filed: 10/06/24 17:07>
Past History
ED Past Medical History: Valvular disease and Other (BPH); Negative Asthma, HTN, Hypercholesterolemia or NIDDM
ED Past Surgical History: Cardiac, Cholecystectomy, Orthopedic, Tonsilectomy and Other
Social History
Tobacco: Non-smoker
Alcohol: Occasional
Drug: None
Personal:
Living: with family
Review of Systems
<Aditya Bagley PA-C - Last Filed: 10/06/24 17:07>
Review of Systems
All Other Systems: ROS reviewed and negative except as documented in HPI and ROS
Phy Exam
<Aditya Bagley PA-C - Last Filed: 10/06/24 17:07>
Physical Exam
Physical Exam:
GENERAL: Alert , in no apparent distress
HEAD: Normocephalic atraumatic
EYE: pupils equal and reactive, clear conjunctiva
NECK: Supple
ENT: o/p clr, mmm.
CARDIAC: Regular rate and rhythm, systolic murmur at the right second intercostal.
LUNGS: Clear breath sounds bilaterally, no acute respiratory distress, no wheezes/rales/rhonchi
NEUROLOGICAL: Alert and oriented, no focal neuro deficits, ambulates with steady gait
SKIN: Warm and dry, skin intact.
MUSCULOSKELETAL: well perfused.
PSYCH: Normal and appropriate interaction.
Scores
<Aditya Bagley PA-C - Last Filed: 10/06/24 17:07>
Heart Failure Risk
Heart Failure Risk Score: Not Applicable
Heart Score for Chest Pain Patients
STEMI patient?: Not applicable
Withdrawal Assessment of Alcohol
Withdrawal Assessment Completed?: Not applicable
Course
<Aditya Bagley PA-C - Last Filed: 10/06/24 17:07>
Orders/Labs/Results
Orders:
Orders
10/06/24 14:[address] [CT Head W/o Iv Contrast] Urgent
Comment:
Reason For Exam: L eye blurry vision
10/06/24 16:44
Electrocardiogram (*1) Urgent
Reason for Study: Other
Other Reason for Exam: blurred vision
EKG- Treatment ONCE
Visual Acuity- Treatment ONCE
10/06/24 17:22
Echo Follow up Study W Dop Urgent
Reason for Study: TAVR 10/02 blurry vision
Cardiology Consult: Michael Pickard
10/06/24 17:27
CT Head & Neck Angio W/wo IV Urgent
Comment:
Reason For Exam: left eye vision disturbance, recent TAVR
10/06/24 17:35
Basic Metabolic Panel Urgent
Complete Blood Count/With Diff Urgent
Abnormal Lab Results
10/06/24
17:35
RBC 4.27 L 10^6/uL
(4.70-6.10)
Hct 38.8 L %
(39.0-52.0)
MPV 10.9 H fL
(7.4-10.4)
Absolute Monos (auto) 0.7 H 10^3/uL
(0.1-0.6)
Lymphocytes % 19.6 L %
(20.5-51.1)
Monocytes % 10.9 H %
(1.7-9.3)
Eosinophils % 6.4 H %
(0-6)
BUN 27 H mg/dl
(9-20)
Glucose 115 H mg/dl
(70-99)
10/06/24 17:35
10/06/24 17:35
Vital Signs
Initial and Last Documented VS:
Initial Vital Signs
Temp Pulse Resp BP Pulse Ox
98.2 F 77 22 111/79 97
10/06/24 14:44 10/06/24 14:44 10/06/24 14:44 10/06/24 14:44 10/06/24 14:44
Last Documented Vital Signs
Temp Pulse Resp BP Pulse Ox
98.2 F 65 16 135/77 98
10/06/24 14:44 10/06/24 19:51 10/06/24 19:51 10/06/24 19:51 10/06/24 19:51
<Tyson Chauhan PA-C - Last Filed: 10/06/24 23:09>
Orders/Labs/Results
Orders:
Orders
10/06/24 14:[address] [CT Head W/o Iv Contrast] Urgent
Comment:
Reason For Exam: L eye blurry vision
10/06/24 16:44
Electrocardiogram (*1) Urgent
Reason for Study: Other
Other Reason for Exam: blurred vision
EKG- Treatment ONCE
Visual Acuity- Treatment ONCE
10/06/24 17:22
Echo Follow up Study W Dop Urgent
Reason for Study: TAVR 10/02 blurry vision
Cardiology Consult: Michael Pickard
10/06/24 17:27
CT Head & Neck Angio W/wo IV Urgent
Comment:
Reason For Exam: left eye vision disturbance, recent TAVR
10/06/24 17:35
Basic Metabolic Panel Urgent
Complete Blood Count/With Diff Urgent
Abnormal Lab Results
10/06/24
17:35
RBC 4.27 L 10^6/uL
(4.70-6.10)
Hct 38.8 L %
(39.0-52.0)
MPV 10.9 H fL
(7.4-10.4)
Absolute Monos (auto) 0.7 H 10^3/uL
(0.1-0.6)
Lymphocytes % 19.6 L %
(20.5-51.1)
Monocytes % 10.9 H %
(1.7-9.3)
Eosinophils % 6.4 H %
(0-6)
BUN 27 H mg/dl
(9-20)
Glucose 115 H mg/dl
(70-99)
10/06/24 17:35
10/06/24 17:35
Vital Signs
Initial and Last Documented VS:
Initial Vital Signs
Temp Pulse Resp BP Pulse Ox
98.2 F 77 22 111/79 97
10/06/24 14:44 10/06/24 14:44 10/06/24 14:44 10/06/24 14:44 10/06/24 14:44
Last Documented Vital Signs
Temp Pulse Resp BP Pulse Ox
98.2 F 65 16 135/77 98
10/06/24 14:44 10/06/24 19:51 10/06/24 19:51 10/06/24 19:51 10/06/24 19:51
<Aditya Bagley PA-C - Last Filed: 10/06/24 17:07>
MDM/Problems Addressed
Differential Diagnosis Includes:
Postoperative complication, vertebral artery or carotid artery complication, retinal detachment, central retinal artery occlusion
MDM/Problems Addressed:
74-year-old male 4 days status post TAVR presenting to the ER for evaluation of transient and fleeting left eye visual disturbance. Patient is currently asymptomatic and in no acute distress. CT of the head ordered from triage is negative for any
acute pathologies. Overall patient's exam is reassuring. Given the fleeting symptoms my suspicion for emergent pathology is overall very low. Will consult with CT surgery to discuss. Considering CTA of the head and neck. EKG and visual acuity
ordered
Chronic conditions affecting care: Other (Valvular disease status post TAVR)
<Aditya Bagley PA-C - Last Filed: 10/06/24 17:07>
*Pulse Oximetry
Patient hypoxic: no
*EKG
Heart Rate: 61
Rate: normal
Rhythm: junctional
[place]: normal axis
Ischemia: no ischemia
<Tyson Chauhan PA-C - Last Filed: 10/06/24 23:09>
*Critical Care Note
Total Time (30-74mins, 75-104mins- exclusive of procedures): Not Applicable
<Tyson Chauhan PA-C - Last Filed: 10/06/24 23:09>
Update Note
Update Note:
Received patient care signed out, CTA of the head and neck as well as echocardiogram unremarkable. 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 Discharged in stable condition
ED Attending Note
<Aditya Bagley PA-C - Last Filed: 10/06/24 17:07>
-
Portions of this chart may have been created with voice recognition software.� Occasional wrong word or��sound alike� substitutions may have occurred due to the inherent limitations of voice recognition software.
Discharge Plan
Departure
Patient Disposition: Home (Routine Discharge)
Date of Disposition: 10/06/24
Time of Disposition: 19:54
Patient with high blood pressure during this ER visit?: No
Discharge Problem:
Blurred vision
Prescriptions:
No Action
tamsulosin 0.4 MG capsule
0.4 mg PO Q48H
finasteride 5 MG tablet
5 mg PO DAILY
ibuprofen 200 mg Capsule
400 mg PO Q6H PRN (Reason: pain)
Probiotic
1 dose PO BID
fexofenadine 180 mg Tablet
180 mg PO BID
atorvastatin 40 mg tablet
40 mg PO DAILY
aspirin 81 mg tablet,delayed release (DR/EC)
81 mg PO DAILY
acetaminophen 325 mg Tablet
650 mg PO Q4HPRN PRN (Reason: LIRIANO, mild pain, or fever >101F) Qty: 0 0RF
Referrals:
Odalis Santoro CRNP [Family Provider] -
Activity Restrictions/Additional Instructions:
Follow up with your primary doctor if symptoms persist
Interventions
Interventions:
*Risk Screen - Suicide Last Done: 10/06/24 14:44
*General Assessment Last Done: 10/06/24 14:44
*Neglect/Abuse Screening Last Done: 10/06/24 14:44
*ED- Fall Risk Assessment Last Done: 10/06/24 16:32
*ED COVID-19 Vaccine History Last Done: 10/06/24 16:32
*Nursing Disposition Last Done: 10/06/24 20:04
Discharge Date and Time
Discharge Date/Time: 03/31/25 20:04
Print Language: BAHRAINI
[2024-10-06 17:41] LABS: % Basophils 0.6 % (0-2); % Eosinophils 6.4 % (0-6); % Immature Granulocytes 0.2 % (0-0.5); % Lymphocytes 19.6 % (20.5-51.1); % Monocytes 10.9 % (1.7-9.3); % Neutrophils 62.3 % (42.2-75.2); Absolute Eosinophils 0.4 10^3/uL (0-0.7); Absolute Lymphocytes 1.3 10^3/uL (1.2-3.4); Absolute Monocytes 0.7 10^3/uL (0.1-0.6); Hematocrit 38.8 % (39.0-52.0); Hemoglobin 13.2 g/dL (13.0-18.0); Mean Corpuscular Hgb 30.9 pg (27.0-31.0); Mean Corpuscular Volume 90.9 fL (80.0-94.0); Mean Platelet Volume 10.9 fL (7.4-10.4); Nucleated Red Blood Cells % 0 % (-); Platelet Count 152 10^3/uL (130-400); Red Blood Cell Count 4.27 10^6/uL (4.70-6.10); Red Cell Dist. Width 12.4 % (11.5-14.5); White Blood Cell Count 6.4 10^3/uL (4.8-10.8)
[2024-10-06 17:57] LABS: Blood Urea Nitrogen 27 mg/dl (9-20); Calcium 9.3 mg/dl (8.4-10.2); Carbon Dioxide 27 mmol/L (22-30); Chloride 104 mmol/L (98-107); Glucose 115 mg/dl (70-99); Potassium 4.2 mmol/L (3.5-5.1); Sodium 136 mmol/L (135-145); eGFR > 60.00
[2024-10-06 19:51] VITALS: BP 135/77
== END 2024-10-06 20:04 | disposition home or self-care (01) ==
LOC: EMR 14:20
PROVIDERS: Physician Assistant Medical; EMERGENCY PHYSICIAN Student in an Organized Health Care Education/Training Program; FAMILY PHYSICIAN Nurse Practitioner Family
DX: H53.8 Other visual disturbances (principal); I38 Endocarditis, valve unspecified; N40.0 Benign prostatic hyperplasia without lower urinary tract symptoms; Z90.49 Acquired absence of other specified parts of digestive tract; Z95.2 Presence of prosthetic heart valve
CPT/HCPCS: 99284; 93308; 70450; 70496; 70498; 80048; 85025; 93005; 93321; 93325; Q9967

== ENCOUNTER 2024-12-05 09:40 | Outpatient (RCR) | payer MEDICARE, OTHER, SELFPAY | END 2024-12-05 23:59 | disposition home or self-care (01) | LOC: CRHB 09:40 | PROVIDERS: ATTENDING PHYSICIAN Internal Medicine Interventional Cardiology; REFERRING PHYSICIAN Internal Medicine Cardiovascular Disease | DX: Z95.4 Presence of other heart-valve replacement (principal); Z95.2 Presence of prosthetic heart valve (principal) | CPT/HCPCS: 93797; 93798 ==

== ENCOUNTER 2024-12-10 09:28 | Outpatient (RCR) | payer MEDICARE, OTHER, SELFPAY | END 2024-12-10 09:30 | disposition home or self-care (01) | LOC: CRHB 09:28 | PROVIDERS: ATTENDING PHYSICIAN Internal Medicine Cardiovascular Disease | DX: Z95.3 Presence of xenogenic heart valve (principal) | CPT/HCPCS: 93798 ==

== ENCOUNTER → 2024-12-16 07:26 | Outpatient (REF) | payer MEDICARE, OTHER, SELFPAY | LOC: HWRAD 07:26 | PROVIDERS: ATTENDING PHYSICIAN Specialist; FAMILY PHYSICIAN Nurse Practitioner Family | DX: E83.110 Hereditary hemochromatosis (principal) | CPT/HCPCS: 76700 ==

== ENCOUNTER 2024-12-30 07:33 | Outpatient (RCR) | payer MEDICARE, OTHER, SELFPAY ==
[2024-12-30 07:50] VITALS: BP 132/71
[2024-12-30 08:30] VITALS: BP 127/73
[2024-12-30 08:48] VITALS: BP 111/63
== END 2025-01-05 23:59 | disposition home or self-care (01) ==
LOC: OID 07:33
PROVIDERS: ATTENDING PHYSICIAN Specialist; FAMILY PHYSICIAN Nurse Practitioner Family
DX: E83.110 Hereditary hemochromatosis (principal)
CPT/HCPCS: 99195

== ENCOUNTER → 2024-12-31 08:19 | Outpatient (REF) | payer MEDICARE, OTHER, SELFPAY | LOC: HWRCS 08:19 | PROVIDERS: ATTENDING PHYSICIAN Physician Assistant; FAMILY PHYSICIAN Nurse Practitioner Family | DX: Z95.2 Presence of prosthetic heart valve (principal); I35.0 Nonrheumatic aortic (valve) stenosis | CPT/HCPCS: 93306 ==

== ENCOUNTER → 2025-06-29 09:52 | Outpatient (REF) | payer MEDICARE, OTHER, SELFPAY | LOC: WDC 09:52 | PROVIDERS: ATTENDING PHYSICIAN Nurse Practitioner Family; FAMILY PHYSICIAN Family Medicine | DX: N63.41 Unspecified lump in right breast, subareolar (principal) | CPT/HCPCS: 76642; 77062; 77066 ==